=== PATIENT | male | born 1990 ===

== ENCOUNTER 2020-02-22 11:20 | Emergency (ER) | payer BC ==
--- NOTE | 2020-02-22 11:48 | EDM.PDOC ---
ED HPI GENERAL MEDICAL PROBLEM - General Chief Complaint: Back Pain or Injury Stated Complaint: lower back pain Time Seen by Provider: 02/22/20 11:35 Source of Information: Reports: Patient. Denies: Old Records (No [facility] records available) History Limitations: Reports: No Limitations - History of Present Illness INITIAL COMMENTS - FREE TEXT/NARRATIVE: The patient drove himself to the emergency room for evaluation of progressive mostly left-sided low back pain with radiation to the left popliteal area. The patient has a long 5 year history of intermittent low back pain with no recent history of significant injury, neurological deficits, etc. Patient did have progressive symptoms since about 22:00 hours on 02/19 with a chiropractic treatment earlier today at about 10:30 a.m. and previous chiropractic evaluation yesterday afternoon by his history. He complains of sharp, throbbing 10/10 left-sided low back pain as above with no improvement with chiropractic treatments, although these have been very effective in the past. He did take 400 mg of ibuprofen at 6 AM today with 325 mg of aspirin taken at 10 AM today with no improvement. The patient denies any chest pain/pressure, heart flutter, dizziness, orthostasis, orthopnea, diaphoresis, paresthesias, recent decreased exercise tolerance, or any other anginal-type symptoms. No recent history of abdominal pain, heartburn, nausea, diarrhea, melena, gross hematochezia, or any food intolerance, including fatty foods, etc.. The patient also denies any recent fever, cough, wheezing, dyspnea, etc.. No history of recent headaches, visual changes, diplopia, change in mental status, or other change in neurological status. He was able to work yesterday with some difficulty. He denies any gross hematuria, colic, or other UTI symptoms. Onset: Gradual Onset Date: 02/20/20 Onset Time: 22:00 Duration: Constant, Getting Worse Location: Reports: Back, Lower Extremity, Left, Radiates to (As above). Denies : Head, Face, Neck, Chest, Abdomen, Upper Extremity, Left, Upper Extremity, Right, Lower Extremity, Right Quality: Reports: Same as Previous Episode, Sharp, Stabbing, Throbbing Severity: Severe Improves with: Reports: None Worsens with: Reports: None Context: Reports: Other (As above). Denies: Lifting, Sick Contact, Trauma Associated Symptoms: Denies: Confusion, Chest Pain, Cough, Diaphoresis, Fever/ Chills, Headaches, Loss of Appetite, Malaise, Nausea/Vomiting, Seizure, Shortness of Breath, Syncope, Weakness Treatments HUNTING GUIDE: Reports: Aspirin, NSAIDS, Other (see below) (No other topical treatment to this point) left lower back Pain Score (Numeric/FACES): 10 - Related Data Allergies Allergy/AdvReac Type Severity Reaction Status Date / Time No Known Allergies Allergy Verified 02/22/20 11:24 Home Meds: Home Meds Cyclobenzaprine [Flexeril] 10 mg PO TID PRN #30 tab 02/22/20 [Rx] Past Medical History Cardiovascular History: Reports: Hypertension Musculoskeletal History: Reports: Arthritis, Back Pain, Chronic, Osteoarthritis Endocrine/Metabolic History: Reports: Obesity/BMI 30+ Social & Family History - Tobacco Use Smoking Status *Q: Current Every Day Smoker Tobacco Use Within Last Twelve Months: Snuff/Dip Years of Tobacco use: 10 Packs/Tins Daily: 0.1 Packs/Tins Daily Comment: Started using chewing tobacco at age 19 with average use of one can every 12 weeks Used Tobacco, but Quit: No Smoking Cessation Information Provided To Patient: Yes Second Hand Smoke Exposure: No Second Hand Smoke Education Provided: No - Living Situation & Occupation Occupation: Employed ([employer] in [employer] [place]) ED ROS GENERAL - Review of Systems Review Of Systems: Comprehensive ROS is negative, except as noted in HPI. ED EXAM,LOWER BACK PAIN/INJURY - Physical Exam Exam: See Below Exam Limited By: No Limitations General Appearance: Alert, WD/WN, No Apparent Distress Head: Atraumatic, Normocephalic. No: Facial Swelling, Facial Tenderness, Sinus Tenderness Neck: Normal Inspection, Supple, Non-Tender, Full Range of Motion. No: Lymphadenopathy (L), Lymphadenopathy (R), Thyromegaly Respiratory/Chest: No Respiratory Distress, Lungs Clear, Normal Breath Sounds, No Accessory Muscle Use, Chest Non-Tender. No: Pleural Rub, Retractions Cardiovascular: Normal Peripheral Pulses, Regular Rate, Rhythm, No Edema, No Gallop, No JVD, No Murmur, No Rub. No: Diastolic Murmur, Gallop/S3, Gallop/S4 GI/Abdominal: Normal Bowel Sounds, Soft, Non-Tender, No Organomegaly, No Distention, No Abnormal Bruit, No Mass, Pelvis Stable, Other (Obese). No: Guarding (Male) Exam: Deferred Rectal (Males) Exam: Deferred Back Exam: Decreased Range of Motion (Secondary to low back pain), Muscle Spasm (Operative mostly left sided mid to lower lumbar with moderate localized tenderness in the paraspinal region), Paraspinal Tenderness (As above). No: CVA Tenderness (L), CVA Tenderness (R), Vertebral Tenderness Extremities: No Pedal Edema, Normal Capillary Refill. No: Jong's Sign Neurological: Alert, Normal Mood/Affect, Normal Dorsiflexion, CN II-XII Intact, Normal Plantar Flexion, Normal Gait, Normal Reflexes, No Motor/Sensory Deficits , Oriented x 3 DTR - Lower Extremities: 2+: Knee (R), Knee (L), Ankle (R), Ankle (L) Psychiatric: Normal Affect, Normal Mood Skin Exam: Warm, Dry, Intact, Normal Color, No Rash. No: Diaphoretic, Ecchymosis, Petechiae, Wound/Incision Lymphatic: No Adenopathy Course - Vital Signs Last Recorded V/S: Last Vital Signs Temp 36.2 C 02/22/20 11:21 Pulse 98 02/22/20 11:21 Resp 18 02/22/20 11:21 BP 139/89 02/22/20 12:09 Pulse Ox 98 02/22/20 11:21 Vital Signs - 24 hr 02/22/20 02/22/20 02/22/20 11:21 11:38 12:09 Temperature [ 36.2 C Temporal] Pulse, 98 Peripheral [ Right Pulse Oximetry] Respiratory 18 Rate Blood Pressure 165/106 H 149/109 H 139/89 [Right Upper Arm] O2 Sat by Pulse 98 Oximetry - Orders/Labs/Meds Orders: Active Orders 24 hr Category Date Time Status Obtain Past Medical Record [OM.PC] Routine Oth 02/22/20 11:48 Active Labs: None Meds: None - Radiology Interpretation Free Text/Narrative:: None Departure - Departure Time of Disposition: 12:25 Disposition: Home, Self-Care 01 Condition: Good Clinical Impression: Low back pain Qualifiers: Chronicity: chronic Back pain laterality: left Sciatica presence: with sciatica Sciatica laterality: sciatica of left side Qualified Code(s): M54.42 - Lumbago with sciatica, left side - Discharge Information *PRESCRIPTION DRUG MONITORING PROGRAM REVIEWED*: Not Applicable *COPY OF PRESCRIPTION DRUG MONITORING REPORT IN PATIENT EMERY: Not Applicable Prescriptions: Cyclobenzaprine [Flexeril] 10 mg PO TID PRN #30 tab PRN Reason: Spasms Instructions: Heart-Healthy Eating Plan, [id number], Chronic Back Pain, Easy- to-Read, Smokeless Tobacco Information, Adult Forms: ED Department Discharge, ED Return to Work/School Form Additional Instructions: 1. Follow-up with your new regular provider on 02/24 as discussed for reevaluation and further adjustment of your current work excuse. Consider CT versus MRI of the lumbar spine depending on your clinical course. 2. Cancel your chiropractic appointment for today, however this may be resumed with discretion thereafter as discussed 3. Tylenol 650 mg by mouth every 4 hours and/or OTC ibuprofen 2-3 tabs by mouth every 6 hours with food as directed./needed. You may stagger these medications for 48-72 hours only, which essentially means that you are receiving a pain medication about every 2 hours. 4. BenGay or equivalent, heating pad, and/or ice packs as directed. 5. Work excuse- See Form 6. Today she precautions with Flexeril as discussed. 7. Stop all tobacco use PANKAJ as directed/per provided information and consider contacting Quit LIne, etc.. 8. Immediately after this visit verify that your cellular telephone's voicemail has been activated and is empty. Also verify that your home telephone 's answering machine is operating properly and has space to receive messages. Note that it is sometimes necessary for us to be able to contact you at a later date to discuss your medical care. 9. Please remember that we are ALWAYS here for you and want to answer any questions you may have. Feel free to call the hospital any time and we call you back PANKAJ. 10. Never used ibuprofen, Aleve, or other NSAIDs at the same time as discussed 11. Continue to observe your blood pressure and pulses closely through your regular provider. 12. Weight loss in moderation as advisable. Sepsis Event Note (ED) - Evaluation Sepsis Screening Result: No Definite Risk - Focused Exam Vital Signs: Vital Signs Temp Pulse Resp BP Pulse Ox 02/22/20 12:09 139/89 02/22/20 11:38 149/109 H 02/22/20 11:21 36.2 C 98 18 165/106 H 98 - Problem List & Annotations (1) Low back pain SNOMED Code(s): 584342267 Code(s): M54.5 - LOW BACK PAIN Status: Acute Priority: High Onset Date : ~02/20/20 Annotation/Comment:: Exacerbation of his chronic low back pain. Various therapeutic options were discussed with the patient not wishing to have any radiological studies at this time. Note no evidence of recent or previous acute injury. He apparently did have baseline x-rays of his lumbar spine in the distant past by his history. Work excuse provided. Activity restrictions discussed. Sedation precautions with Flexeril also discussed. Continue chiropractic treatments for now with discretion with consideration of physical therapy referral, further CT scan versus MRI, etc. as per discharge instructions. Close follow-up by his new regular provider. Qualifiers: Chronicity: chronic Back pain laterality: left Sciatica presence: with sciatica Sciatica laterality: sciatica of left side Qualified Code(s): M54.42 - Lumbago with sciatica, left side; G89.29 - Other chronic pain (2) Obesity (BMI 30-39.9) SNOMED Code(s): 873646531, 184787986 Code(s): E66.9 - OBESITY, UNSPECIFIED Status: Chronic Priority: Medium Annotation/Comment:: Weight loss in moderation advisable with patient given dietary information at discharge. The effect of his weight on his chronic low back pain was also discussed. (3) Tobacco abuse counseling SNOMED Code(s): 613989486, [id number], [id number] Code(s): Z71.6 - TOBACCO ABUSE COUNSELING Status: Chronic Priority: Medium Annotation/Comment:: Tobacco cessation strongly encouraged with information provided and the patient counseled extensively on the use of Nicorette gum. (4) Hypertension SNOMED Code(s): 94306722 Code(s): I10 - ESSENTIAL (PRIMARY) HYPERTENSION Status: Chronic Priority : Medium Annotation/Comment:: Previous history of hypertension without previous medical therapy. He has had very limited previous preventative healthcare. His low back pain was a factor in today's initially elevated blood pressures with improvement with no treatment in the emergency room. Continue to observe closely by his new regular provider with consideration of medical therapy depending on his clinical course. Weight loss in moderation advisable as below. Qualifiers: Hypertension type: essential hypertension Qualified Code(s): I10 - Essential (primary) hypertension - Problem List Review Problem List Initiated/Reviewed/Updated: Yes - My Orders Last 24 Hours: My Active Orders 02/22/20 11:48 Obtain Past Medical Record [OM.PC] Routine - Assessment/Plan Last 24 Hours: My Active Orders 02/22/20 11:48 Obtain Past Medical Record [OM.PC] Routine Assessment:: As above Plan: As above. Extensive precautions were given to the patient, who is in agreement with the treatment plan. See Patient Instructions for further treatment and plan.
== END 2020-02-22 12:25 | disposition home or self-care (01) ==
LOC: LL.ED 11:20
DX: M54.42 Lumbago with sciatica, left side (principal); I10 Essential (primary) hypertension; E66.9 Obesity, unspecified; F17.290 Nicotine dependence, other tobacco product, uncomplicated; Z68.34 Body mass index [BMI] 34.0-34.9, adult
CPT/HCPCS: 99283